=== PATIENT | male | born 1995 | race Caucasian/White ===

== ENCOUNTER 2018-10-01 16:07 | Emergency (ER) | payer BC ==
[~2018-10-01] VITALS: Ht 188 cm; Wt 83.5 kg
[2018-10-01 16:17] VITALS: BP 141/80; TEMP 97.7
[2018-10-01] MEDS ORDERED: ZYRTEC 10MG10 MG PO (16:38)
[2018-10-01] MEDS ORDERED: CRUTCHES MC (16:57)
[2018-10-01] MEDS ORDERED: NORCO 325 MG-51 TAB PO (16:57)
[2018-10-01 17:19] VITALS: PULSE 93
== END 2018-10-01 17:28 | disposition home or self-care (01) ==
LOC: COL.ER 16:07
DX: S93.401A Sprain of unspecified ligament of right ankle, initial encounter (principal); Z88.1 Allergy status to other antibiotic agents; X50.0XXA Overexertion from strenuous movement or load, initial encounter; Y93.67 Activity, basketball